=== PATIENT | male | born 1960 | race Caucasian/White ===

== ENCOUNTER 2020-06-17 13:05 | Emergency (ER) | payer OTHER, MEDICAID, SELFPAY ==
[2020-06-17] VITALS (35 sets, daily range): BP systolic 71–137; BP diastolic 53–109; PULSE 58–172; RESP 9–21; TEMP 36.2; O2SAT 93–100; BMI 25.0
--- NOTE | 2020-06-17 13:16 | DI.RAD.S_ITS ---
PROCEDURE: XR CHEST 1V INDICATIONS: chest pain TECHNIQUE: One view of the chest was acquired. COMPARISON: None. FINDINGS: Surgical changes and devices: None. Lungs and pleura: Interstitial prominence is identified within the bilateral perihilar regions. No focal consolidation, effusion, or pneumothorax is appreciated. Mediastinum: Mediastinal contours appear normal. Heart size is enlarged. Bones and chest wall: No suspicious bony lesions. Overlying soft tissues appear unremarkable. IMPRESSION: Cardiomegaly with associated mild to moderate pulmonary edema. Dictated by: Jemal Levy M.D. on 06/17/2020 at 12:38 Approved by: Jemal Levy M.D. on 06/17/2020 at 12:39
[2020-06-17 13:26] LABS: Add Manual Diff / Slide Review NO; Basophils Absolute Auto 100 /uL (0-100); Basophils Percent Auto 0.6 % (0-2); Eosinophils Absolute Auto 200 /uL (0-450); Eosinophils Percent Auto 2.1 % (2-4); Hematocrit 47.4 % (41-53); Hemoglobin 15.8 g/dL (13.5-17.5); Lymphocytes Absolute Auto 1900 /uL (1100-4500); Lymphocytes Percent Auto 19.3 % (25-40); Mean Corpuscular HGB Conc 33.4 % (30-36); Mean Corpuscular Hemoglobin 30.6 PG (26-34); Mean Corpuscular Volume 91.5 fL (80-100); Monocytes Absolute Auto 900 /uL (0-900); Monocytes Percent Auto 9.1 % (3-14); Neutrophils Absolute Auto 6900 /uL (1500-7000); Neutrophils Percent Auto 68.9 % (50-75); Platelet Count 477 X10^3/uL (150-400); Red Blood Cell Count 5.18 X10^6/uL (4.5-5.9)
--- NOTE | 2020-06-17 13:26 | ED_ITS ---
HPI - Arrhythmia/Palpitations General Chief Complaint: Arrhythmia/Palpitations Stated Complaint: SHORTNESS OF BREATH,ABNORMAL EKG Time Seen by Provider: 06/17/20 13:24 Source: patient Mode of arrival: Ambulatory Limitations: no limitations History of Present Illness HPI narrative: CC: SOB HPI: The patient is a 60-year-old male who states that he is very active. 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 Two weeks ago he noted that when he was riding his bike and was very tired. He states that he developed shortness of breath which has not really resolved since then. He just thought that he was out of shape. He called and spoke to his brother who is a physician in [place] who sent him to the respiratory clinic to be evaluated for flare of his asthma, covid. At the clinic the patient was noted to be in atrial fibrillation with a heart rate of 163 and sent to the emergency department. The patient is unaware that he is having palpitations or rapid heart rate. He just has noted that he has been easily tired fatigued and short of breath. He denies any neck pain, jaw pain, shoulder pain, arm pain, chest pain. Yesterday he had a repeat Ruffin it test performed. He believes that it in December while in [place] he had high fever was very sick in thinks that he had Covid at that time. He denies a history of COPD myocardial infarction congestive heart failure heart murmur hypertension diabetes mellitus, TB, HIV, and hepatitis. He does admit to a history of asthma. He does not smoke cigarettes. He denies any recent fever chills or sweats. He has had mild diarrhea but no abdominal pain nausea and vomiting and no urinary symptoms. Related Data Home Medications Medication Instructions Recorded Confirmed No Known Home Medications 06/17/20 06/17/20 Allergies Allergy/AdvReac Type Severity Reaction Status Date / Time bee venom protein (honey bee) Allergy Intermediate Verified 06/17/20 12:09 Review of Systems Review of Systems Narrative: Review of systems were all negative except for those mentioned in the history of present illness. Patient History Social History Smoking Status: Never smoker Smoking Status: Never smoker alcohol intake frequency: 0-2 drinks per day Substance Use Type: does not use Exam Narrative Exam Narrative: PHYSICAL EXAM: CONSTITUTIONAL: Awake, Alert, Oriented, Coherent, Cooperative in NAD. Does not appear toxic or ill. HEAD: AT/NC EENT: PERRL, FROM of eyes, NOSE:No epistaxis or nasal drainage MOUTH:Oral mucosa is moist and pink, posterior pharynx is without erythema or exudate. NECK: Supple, no obvious JVD, Trachea is midline without stridor, no palpable LN. SPINE: Palpation of the cervical, Thoracic, Lumbar or Sacral spine reveals no gross deformity or tenderness. No CVA tenderness. THORAX: No deformity, retractions, chest wall tenderness. LUNGS: Clear, symmetrical breath sounds without respiratory distress. HEART: Tachycardic irregular irregular heartbeat variable S1-S2 heart rate ranges from 163 to 143. ABDOMEN: Soft, non-tender, normal bowel sounds without guarding, rebound, rigidity or palpable mass. EXTREMITIES: No edema, deformity, tenderness or cyanosis. SKIN: No rash, bruising, petechiae or purpura. NEURO: Awake, alert, oriented, conversive, cranial nerves II-XII are symmetrical , moves all 4 extremities and is ambulatory. MENTAL HEALTH: Does not appear anxious or depressed. Initial Vital Signs Initial Vital Signs: Vital Signs Temperature 97.2 F L 06/17/20 13:11 Pulse Rate 170 H 06/17/20 13:11 Respiratory Rate 18 06/17/20 13:11 Pulse Oximetry 100 06/17/20 13:11 Course Course Course Narrative: 1500 the patient's heart rate was staying at 143. He was given a 2nd bolus of Cardizem 20 mg and his heart rate dropped to 80 than 64 and then his blood pressure dropped. The patient is being administered a bolus of saline at this time. He is awake alert and oriented. The patient is requesting that he be transferred to [facility] if possible since his brother knows physicians there. 1555: I spoke with Dr. Garcia Pattern Drafter at who has accepted the patient being admitted to their institution. The transfer center will call back with a bed. The patient will be transferred ALS. The patient will be directly admitted to cardiology to the [facility]. 1700: The patient's CTs angiogram of the chest revealed IMPRESSION: No evidence of pulmonary embolism. Small bilateral pleural effusions and bibasilar interlobular septal thickening in keeping with pulmonary edema. Reflux of IV contrast into the IVC compatible with decreased cardiac output. Partially visualized, incompletely evaluated pericholecystic ill-defined stranding. Please correlate with LFTs and if there is any clinical suspicion for acute cholecystitis, dedicated ultrasound could be performed. The patient will be transfereed to the [facility]. The patient was restarted on his Cardizem drip. His blood pressure has improved to 1 13/70 heart rate jumps around from 99-120. He is currently awake alert and oriented. Orders Ordered: Discontinued Medications Aspirin (Aspirin Chew) 324 mg PO NOW ONE Stop: 06/17/20 14:37 Last Admin: 06/17/20 15:06 Dose: 324 mg Documented by: KIRT Diltiazem HCl (Cardizem) 10 mg IV NOW ONE Stop: 06/17/20 13:17 Last Admin: 06/17/20 13:27 Dose: 10 mg Documented by: KIRT Diltiazem HCl (Cardizem) 20 mg IV NOW ONE Stop: 06/17/20 13:48 Last Admin: 06/17/20 13:52 Dose: 20 mg Documented by: KIRT Heparin Sodium (Porcine) (Heparin) 5,000 unit IV NOW ONE Stop: 06/17/20 14:22 Last Admin: 06/17/20 15:08 Dose: 5,000 unit Documented by: KIRT DILTIAZEM (Diltiazem 125 Mg/125 Ml-D5w) 125 mg in 125 mls @ 10 mls/hr IV TITRATE PUMA; Protocol Last Titration: 06/17/20 17:51 Dose: 0 mg/hr, 0 mls/hr Documented by: JOHNTONOlamide Admin: 06/17/20 16:58 Dose: 10 mg/hr, 10 mls/hr Documented by: Titration: 06/17/20 14:27 Dose: 0 mg/hr, 0 mls/hr Documented by: Admin: 06/17/20 13:30 Dose: 10 mg/hr, 10 mls/hr Documented by: KIRT Heparin Sodium/Dextrose (Heparin Drip) 25,000 unit in 500 mls @ 20 mls/hr IV CONT PUMA; Protocol Last Titration: 06/17/20 17:48 Dose: 0 units/hr, 0 mls/hr Documented by: Admin: 06/17/20 15:10 Dose: 1,000 units/hr, 20 mls/hr Documented by: KIRT Ondansetron HCl 8 mg/ Sodium (Chloride) 54 mls @ 216 mls/hr IV NOW ONE Stop: 06/17/20 14:36 Last Infusion: 06/17/20 16:31 Dose: 0 mls/hr Documented by: Admin: 06/17/20 15:07 Dose: 216 mls/hr Documented by: KIRT Sodium Chloride (Normal Saline 0.9%) 1,000 mls @ 500 mls/hr IV BOLUS ONE Stop: 06/17/20 18:33 Last Infusion: 06/17/20 17:47 Dose: 0 mls/hr Documented by: Admin: 06/17/20 16:36 Dose: 500 mls/hr Documented by: KIRT DILTIAZEM (Diltiazem 125 Mg/125 Ml-D5w) 125 mg in 125 mls @ 10 mls/hr IV TIT RATE PUMA; Protocol Last Admin: 06/17/20 17:27 Dose: Not Given Documented by: KIRT Vital Signs Vital signs: Vital Signs - 8 hr 06/17/20 13:11 06/17/20 13:27 06/17/20 13:30 Temperature 97.2 F L Pulse Rate 170 H 172 H 149 H Respiratory Rate 18 20 Blood Pressure 135/94 H 118/100 H Pulse Oximetry 100 98 06/17/20 13:37 06/17/20 13:52 06/17/20 13:53 Temperature Pulse Rate 136 H 143 H 127 H Respiratory Rate 16 11 L Blood Pressure 115/85 115/85 Pulse Oximetry 98 95 06/17/20 14:00 06/17/20 14:16 06/17/20 14:18 Temperature Pulse Rate 104 H 94 H 84 Respiratory Rate 11 L 18 13 Blood Pressure 107/85 89/73 L 97/76 Pulse Oximetry 97 98 98 06/17/20 14:19 06/17/20 14:28 06/17/20 14:30 Temperature Pulse Rate 80 58 L 64 Respiratory Rate 13 15 10 L Blood Pressure 97/76 Pulse Oximetry 98 93 96 06/17/20 14:44 06/17/20 14:54 06/17/20 15:00 Temperature Pulse Rate 77 80 81 Respiratory Rate 13 11 L 13 Blood Pressure 72/57 L 71/53 L Pulse Oximetry 100 100 100 06/17/20 15:16 06/17/20 15:21 06/17/20 15:30 Temperature Pulse Rate 80 87 90 Respiratory Rate 10 L 13 14 Blood Pressure 89/74 L 99/83 Pulse Oximetry 100 100 100 06/17/20 15:31 06/17/20 15:44 06/17/20 15:50 Temperature Pulse Rate 102 H 93 H 94 H Respiratory Rate 14 9 L 16 Blood Pressure 100/81 109/80 103/85 Pulse Oximetry 100 100 100 06/17/20 16:00 06/17/20 16:08 06/17/20 16:20 Temperature Pulse Rate 105 H 104 H 107 H Respiratory Rate 14 15 17 Blood Pressure 109/81 116/84 Pulse Oximetry 100 98 99 06/17/20 16:28 06/17/20 16:30 Temperature Pulse Rate 112 H 116 H Respiratory Rate 18 16 Blood Pressure 131/96 H 127/94 H Pulse Oximetry 99 99 MDM - Arrhythmia/Palpitations Medical Records Attestation: I reviewed the patient's medical records. Lab Data Attestation: I reviewed the patient's lab results. Result diagrams: 06/17/20 13:18 06/17/20 13:18 Labs: Lab Results 06/17/20 06/17/20 06/17/20 Range/Units 13:18 13:18 13:18 WBC 10.0 (4.5-11.0) X10^3/uL RBC 5.18 (4.5-5.9) X10^6/uL Hgb 15.8 (13.5-17.5) g/dL Hct 47.4 (41-53) % MCV 91.5 (80-100) fL MCH 30.6 (26-34) PG MCHC 33.4 (30-36) % RDW 13.0 (11.6-14.8) % Plt Count 477 H (150-400) X10^3/uL Neut % (Auto) 68.9 (50-75) % Lymph % (Auto) 19.3 L (25-40) % [place] % (Auto) 9.1 (3-14) % Eos % (Auto) 2.1 (2-4) % Baso % (Auto) 0.6 (0-2) % Neut # (Auto) 6900 (0774-7172) /uL Lymph # (Auto) 1900 (3621-1000) /uL [place] # (Auto) 900 (0-900) /uL Eos # (Auto) 200 (0-450) /uL Baso # (Auto) 100 (0-100) /uL PT 12.8 H (10.1-12.7) SECONDS INR 1.1 (0.9-1.3) APTT 35 (26.4-36.2) SECONDS D-Dimer (<230) ng/mL Sodium 139 (137-145) mmol/L Potassium 4.2 (3.4-5.1) mmol/L Chloride 104 (98-107) mmol/L Carbon Dioxide 25 (22-32) mmol/L BUN 15 (9-20) mg/dL Creatinine 1.06 (0.66-1.25) mg/dL Estimated GFR > 60.0 (>60) mL/min BUN/Creatinine Ratio 14.2 (6-22) Glucose 135 H (70-100) mg/dL Calcium 9.9 (8.4-10.2) mg/dL Magnesium 2.2 (1.6-2.3) mg/dL Total Bilirubin 0.7 (0.2-1.3) mg/dL AST 43 (17-59) IU/L ALT 60 H (<50) IU/L Alkaline Phosphatase 92 (38-126) U/L Total Creatine Kinase 47 L (55-170) U/L CK-MB (CK-2) TNP CK-MB (CK-2) Rel Index TNP Troponin I 0.288 H* (0.01-0.034) ng/mL Total Protein 7.4 (6.3-8.2) g/dL Albumin 4.4 (3.5-5.0) g/dL Globulin 3.0 (1.7-4.1) g/dL Albumin/Globulin Ratio 1.5 (1.0-2.8) Lipase 98 (23-300) U/L TSH (0.47-4.68) uIU/mL COVID-19 PCR (Negative) 06/17/20 06/17/20 06/17/20 Range/Units 13:18 13:18 16:00 WBC (4.5-11.0) X10^3/uL RBC (4.5-5.9) X10^6/uL Hgb (13.5-17.5) g/dL Hct (41-53) % MCV (80-100) fL MCH (26-34) PG MCHC (30-36) % RDW (11.6-14.8) % Plt Count (150-400) X10^3/uL Neut % (Auto) (50-75) % Lymph % (Auto) (25-40) % [place] % (Auto) (3-14) % Eos % (Auto) (2-4) % Baso % (Auto) (0-2) % Neut # (Auto) (4767-1324) /uL Lymph # (Auto) (4223-4272) /uL [place] # (Auto) (0-900) /uL Eos # (Auto) (0-450) /uL Baso # (Auto) (0-100) /uL PT (10.1-12.7) SECONDS INR (0.9-1.3) APTT (26.4-36.2) SECONDS D-Dimer 1921 H (<230) ng/mL Sodium (137-145) mmol/L Potassium (3.4-5.1) mmol/L Chloride (98-107) mmol/L Carbon Dioxide (22-32) mmol/L BUN (9-20) mg/dL Creatinine (0.66-1.25) mg/dL Estimated GFR (>60) mL/min BUN/Creatinine Ratio (6-22) Glucose (70-100) mg/dL Calcium (8.4-10.2) mg/dL Magnesium (1.6-2.3) mg/dL Total Bilirubin (0.2-1.3) mg/dL AST (17-59) IU/L ALT (<50) IU/L Alkaline Phosphatase (38-126) U/L Total Creatine Kinase (55-170) U/L CK-MB (CK-2) CK-MB (CK-2) Rel Index Troponin I 0.246 H* (0.01-0.034) ng/mL Total Protein (6.3-8.2) g/dL Albumin (3.5-5.0) g/dL Globulin (1.7-4.1) g/dL Albumin/Globulin Ratio (1.0-2.8) Lipase (23-300) U/L TSH 1.35 (0.47-4.68) uIU/mL COVID-19 PCR (Negative) 06/17/20 Range/Units 16:41 WBC (4.5-11.0) X10^3/uL RBC (4.5-5.9) X10^6/uL Hgb (13.5-17.5) g/dL Hct (41-53) % MCV (80-100) fL MCH (26-34) PG MCHC (30-36) % RDW (11.6-14.8) % Plt Count (150-400) X10^3/uL Neut % (Auto) (50-75) % Lymph % (Auto) (25-40) % [place] % (Auto) (3-14) % Eos % (Auto) (2-4) % Baso % (Auto) (0-2) % Neut # (Auto) (3380-6032) /uL Lymph # (Auto) (2056-7783) /uL [place] # (Auto) (0-900) /uL Eos # (Auto) (0-450) /uL Baso # (Auto) (0-100) /uL PT (10.1-12.7) SECONDS INR (0.9-1.3) APTT (26.4-36.2) SECONDS D-Dimer (<230) ng/mL Sodium (137-145) mmol/L Potassium (3.4-5.1) mmol/L Chloride (98-107) mmol/L Carbon Dioxide (22-32) mmol/L BUN (9-20) mg/dL Creatinine (0.66-1.25) mg/dL Estimated GFR (>60) mL/min BUN/Creatinine Ratio (6-22) Glucose (70-100) mg/dL Calcium (8.4-10.2) mg/dL Magnesium (1.6-2.3) mg/dL Total Bilirubin (0.2-1.3) mg/dL AST (17-59) IU/L ALT (<50) IU/L Alkaline Phosphatase (38-126) U/L Total Creatine Kinase (55-170) U/L CK-MB (CK-2) CK-MB (CK-2) Rel Index Troponin I (0.01-0.034) ng/mL Total Protein (6.3-8.2) g/dL Albumin (3.5-5.0) g/dL Globulin (1.7-4.1) g/dL Albumin/Globulin Ratio (1.0-2.8) Lipase (23-300) U/L TSH (0.47-4.68) uIU/mL COVID-19 PCR Negative (Negative) ECG Data Attestation: I personally reviewed and interpreted this ECG as follows: Interpretation: 1326: The patient's EKG obtained on June 17 at 1:11 p.m. revealed an atrial fibrillation ventricular rate 163, PA interval absent QRS duration 92 milliseconds QTC slightly prolonged at 470 milliseconds normal axis. The patient has no acute diagnostic ST segment changes. It is unclear whether not the T-waves are inverted in lead V1. There are no other acute diagnostic ST segment changes. Discharge Plan Departure Patient Disposition: [facility] Clinical Impression: Shortness of breath, Atrial fibrillation with RVR, Elevated troponin, Non-STEMI (non-ST elevated myocardial infarction) Discharge Date/Time: 06/17/20 18:03 Prescriptions: No Action No Known Home Medications RF: 0
[2020-06-17] MEDS: dilTIAZem 5 MG/ML SDV 10 MG IV (13:27)
[2020-06-17] MEDS: DILTIAZEM 125 MG/125 ML PIGGYBACK 10 MG IV ×2 (13:30→16:58)
[2020-06-17 13:36] LABS: INR 1.1 (0.9-1.3); Prothrombin Time 12.8 SECONDS (10.1-12.7)
[2020-06-17 13:38] LABS: PTT Partial Thromboplastin Tim 35 SECONDS (26.4-36.2)
[2020-06-17 13:41] LABS: Alanine Aminotransferase 60 IU/L (<50); Albumin 4.4 g/dL (3.5-5.0); Albumin Globulin Ratio 1.5 (1.0-2.8); Alkaline Phosphatase 92 U/L (38-126); Aspartate Aminotransferase 43 IU/L (17-59); BUN Creatinine Ratio 14.2 (6-22); Bilirubin Total 0.7 mg/dL (0.2-1.3); Blood Urea Nitrogen 15 mg/dL (9-20); Calcium 9.9 mg/dL (8.4-10.2); Carbon Dioxide 25 mmol/L (22-32); Chloride 104 mmol/L (98-107); Creatine Kinase 47 U/L (55-170); Estimated Glomerular Filt Rate > 60.0 mL/min (>60); Glucose 135 mg/dL (70-100); HEMOLYSIS < 15 (0-50); Lipase 98 U/L (23-300); Magnesium 2.2 mg/dL (1.6-2.3); Potassium 4.2 mmol/L (3.4-5.1); Sodium 139 mmol/L (137-145); Total Protein 7.4 g/dL (6.3-8.2)
[2020-06-17] MEDS: dilTIAZem 5 MG/ML SDV 20 MG IV (13:52)
[2020-06-17 14:07] LABS: D Dimer 1921 ng/mL (<230)
[2020-06-17 14:14] LABS: Troponin I 0.288 ng/mL (0.01-0.034)
[2020-06-17 14:23] LABS: Thyroid Stimulating Hormone 1.35 uIU/mL (0.47-4.68)
--- NOTE | 2020-06-17 14:30 | PC.NURSE ---
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 Cardizem drip paused 1427. Provider Maino aware. Will be in to see patient.
[2020-06-17] MEDS: ASPIRIN 81 MG CHEW TAB 324 MG PO (15:06)
[2020-06-17] MEDS: ONDANSETRON 8 MG in SODIUM CHLORIDE 0.9% 50 ML 216 ML IV (15:07)
[2020-06-17] MEDS: HEPARIN 5,000 UNIT/ML VIAL 5000 UNIT IV (15:08)
--- NOTE | 2020-06-17 15:08 | DI.CT.S_ITS ---
PROCEDURE: CT ANGIO CHEST PE PROTOCOL INDICATIONS: new onset rapid atrial fib, elevated troponin, elevated dim TECHNIQUE: After the administration of intravenous contrast, 2 mm thick sections acquired from the pulmonary apices to the posterior costophrenic angles. 3-dimensional maximum intensity projection (MIP) coronal and sagittal reformats were then acquired through the thorax. For radiation dose reduction, the following was used: automated exposure control, adjustment of mA and/or kV according to patient size. COMPARISON: None. FINDINGS: Image quality: Excellent. Pulmonary arteries: Pulmonary arteries are normal in size, and demonstrate no intraluminal filling defects to suggest central pulmonary embolism. Reflux of IV contrast into the IVC and hepatic veins in keeping with decreased cardiac output Lungs and pleura: Scattered scarring/atelectasis. There is prominent smooth interlobular septal thickening in the lung bases. Small bilateral pleural effusions are present. No pneumothorax identified. Heart is enlarged. No mediastinal or hilar adenopathy. Thoracic aorta is normal in caliber and enhancement. Esophagus is normal in caliber, without hiatal hernia. Bones and chest wall: No suspicious bony lesions. Ribs and thoracic spine appear intact throughout. Thyroid gland negative . No axillary or supraclavicular adenopathy. Abdomen: Visualized upper abdominal solid organs appear normal in the early arterial phase of enhancement. IMPRESSION: No evidence of pulmonary embolism. Small bilateral pleural effusions and bibasilar interlobular septal thickening in keeping with pulmonary edema. Reflux of IV contrast into the IVC compatible with decreased cardiac output. Partially visualized, incompletely evaluated pericholecystic ill-defined stranding. Please correlate with LFTs and if there is any clinical suspicion for acute cholecystitis, dedicated ultrasound could be performed. Dictated by: John Reed M.D. on 06/17/2020 at 16:34 Approved by: John Reed M.D. on 06/17/2020 at 16:40
[2020-06-17] MEDS: HEPARIN DRIP 25,000 UNIT/500 ML IV.SOLN 20 UNIT IV (15:10)
--- NOTE | 2020-06-17 15:16 | PC.NURSE ---
pt suddenly felt ill. pt nauseated and diaphoretic. went into room at 1429, pt pale. pt bp unable to get bp. stayed with pt, he was speaking carrying on a full conversation. dr suarez in room, rec'd orders. pt bp at 1443 72/57, started a NS bolus 1000mg. pt bp after about 200ml bp 71/43. cont'd bolus, reported to brayden easley.
[2020-06-17] MEDS: SODIUM CHLORIDE 0.9% 1,000 ML 500 ML IV (16:36)
[2020-06-17 16:42] LABS: Troponin I 0.246 ng/mL (0.01-0.034)
[2020-06-17 17:48] LABS: COVID19 -Nasal RAPID Negative (Negative)
== END 2020-06-17 18:03 | disposition short-term general hospital (02) ==
LOC: ED 13:34
PROVIDERS: Emergency Provider Emergency Medicine
DX: I21.4 Non-ST elevation (NSTEMI) myocardial infarction (principal); I48.91 Unspecified atrial fibrillation; R06.02 Shortness of breath; R79.89 Other specified abnormal findings of blood chemistry
CPT/HCPCS: 36415; 71045; 71275; 80053; 82550; 83690; 83735; 84443; 84484; 85025; 85379; 85610; 85730; 87635; 93005; 96365; 96366; 96367; 96368; 96375; 99285; 99291; J1644; J2405; Q9967